=== PATIENT | female | born 1990 | race Caucasian/White ===

== ENCOUNTER 2023-03-12 07:55 | Outpatient (CLI) | payer BC | END 2023-03-12 07:56 | disposition home or self-care (01) | LOC: BICMAMMO 07:55 | PROVIDERS: ATTEND Student in an Organized Health Care Education/Training Program | DX: N63.10 Unspecified lump in the right breast, unspecified quadrant (principal); N63.20 Unspecified lump in the left breast, unspecified quadrant | CPT/HCPCS: 77066; G0279 ==

== ENCOUNTER 2024-01-21 13:21 | Outpatient (CLI) | payer BC | END 2024-01-21 13:22 | disposition home or self-care (01) | LOC: ULT 13:21 | PROVIDERS: ATTEND Nurse Practitioner Family | DX: R33.9 Retention of urine, unspecified (principal); N39.43 Post-void dribbling | CPT/HCPCS: 76856 ==

== ENCOUNTER 2024-02-09 13:03 | Outpatient (CLI) | payer BC ==
[~2024-02-09 13:03] MED LIST: Iopamidol 370 76% 100 ML VIAL ONE
== END 2024-02-09 13:04 | disposition home or self-care (01) ==
LOC: CT 13:03
PROVIDERS: ATTEND Nurse Practitioner Family
DX: R31.29 Other microscopic hematuria (principal)
CPT/HCPCS: 74178; Q9967